=== PATIENT | female | born 1990 | race Caucasian/White ===

== ENCOUNTER 2020-10-04 16:11 | Emergency (ER) | payer BC ==
[~2020-10-04] VITALS: Ht 172.7 cm; Wt 59.0 kg
[2020-10-04 16:16] VITALS: BP 118/81
[2020-10-04 16:41] LABS: URINE BILIRUBIN NEGATIVE (Negative); URINE BLOOD TRACE (Negative); URINE COLOR YELLOW; URINE GLUCOSE-RANDOM* TRACE (Negative); URINE KETONES TRACE (Negative); URINE PROTEIN (DIPSTICK) TRACE (Negative); URINE SPECIFIC GRAVITY 1.015 (1.005-1.035)
[2020-10-04 16:45] LABS: URINE LEUKOCYTES-REFLEX 2+ (Negative); URINE NITRITE-REFLEX POSITIVE (Negative)
[2020-10-04 16:47] LABS: URINE CLARITY HAZY
[2020-10-04 16:51] LABS: BACTERIA-REFLEX >30 Many /HPF (None Seen); SQUAMOUS 0-3 Few /LPF (0-3); URINE RBC 1-2 Rare /HPF (NONE SEEN); URINE WBC-REFLEX >25 Many /HPF (0-5)
[2020-10-04 16:52] LABS: CASTS None Seen /LPF (None Seen); CRYSTALS None Seen /LPF (None Seen)
== END 2020-10-04 17:15 | disposition home or self-care (01) ==
LOC: ER 16:11
PROVIDERS: Nurse Practitioner
DX: N39.0 Urinary tract infection, site not specified (principal)